=== PATIENT | male | born 2000 | race Hispanic/Latino ===

== ENCOUNTER 2018-07-02 00:40 | Emergency (ER) | payer OTHER ==
[~2018-07-02] VITALS: Ht 165.1 cm; Wt 66.0 kg
[2018-07-02] MEDS ORDERED: AMOX/K CLAV875 M1 PO ×2 (01:04→01:33)
[2018-07-02 01:55] VITALS: BP 122/62
== END 2018-07-02 01:58 | disposition home or self-care (01) ==
LOC: ED 00:40
DX: S81.852A Open bite, left lower leg, initial encounter (principal); F17.210 Nicotine dependence, cigarettes, uncomplicated; W54.0XXA Bitten by dog, initial encounter; Y92.410 Unspecified street and highway as the place of occurrence of the external cause